=== PATIENT | female | born 1965 | race Caucasian/White ===

== ENCOUNTER 2024-10-19 12:37 | Outpatient (CLI) | payer OTHER, SELFPAY ==
--- NOTE | ~2024-10-19 | MMUS_ITS ---
EXAMINATION: MM diagnostic willis BI w shoaib, US breast LT limited HISTORY: Left nipple pain TECHNIQUE: 3-D tomosynthesis images of the breasts were performed and synthetic 2-D images were generated. CAD analysis was submitted and interpreted. High resolution limited left breast ultrasound was performed. COMPARISON: 07/29/2017 BREAST PARENCHYMAL COMPOSITION:Dense: The breasts are heterogeneously dense, which may obscure small masses. FINDINGS: MAMMOGRAPHIC FINDINGS: Parenchymal pattern of both breasts is unchanged. No suspicious mass lesion or distortion. No suspicious microcalcification. ULTRASOUND: There is a 3 mm cyst in the 2:00 left subareolar region. No other solid mass lesion or intraductal mass seen. No dilated ducts. IMPRESSION: No evidence for malignancy. 3 mm simple cyst in the left subareolar region, as above. BI-RADS Category 2: Benign finding(s). Reviewed, dictated and finalized at location . IMPRESSION: No evidence for malignancy. 3 mm simple cyst in the left subareolar region, as above. BI-RADS Category 2: Benign finding(s).
--- OUTSIDE RECORDS SUMMARY | 2024-10-19 12:43 | XMS_ITS | Clinical Summary ---
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 Active Vitamin D-Vitamin K (VITAMIN K2-VITAMIN D3 OR) Vitamin D3 5000 IU, K2 100 mcg Active Active Problems Problem Noted Date Diagnosed Date Carpal tunnel syndrome, right 07/29/2021 Arthritis of carpometacarpal (CMC) joint of left thumb 07/29/2021 Plantar fasciitis 06/07/2020 Postmenopausal 06/07/2020 Pain of left thumb 06/07/2020 Resolved Problems Problem Noted Date Diagnosed Date Resolved Date Chronic pain of left knee 06/07/2020 Chronic pain of right knee 06/07/2020 0 08/03/2022 BMI 25.0-25.9,adult 06/07/2020 08/04/19 23 Encounters Date Type Department Care Team Description 09/27/2024 9:00 AM CDT Office Visit [facility] Family & Internal Medicine [address] [phone] Tj Sarkar APNP Breast Pain (Pt c/o a burning pain in left breast x 2-3 weeks. She states it only hurts when she moves certain ways, reaches or coughs. She describes it as a tearing sensation deep behind/beneath the nipple. ) 09/27/2024 Telephone [facility] Family & Internal Medicine [address] [phone] Tj Sarkar, APNP Orders 09/27/2024 Travel 07/27/2024 1:34 PM CDT - 07/27/2024 11:59 PM CDT Hospital Encounter [facility] Occupational Therapy [address] [place] [address] Gerald Wolfe MD Smith, Kimberly M, OT Thumb Pain Discharge Disposition: Home or Self Care (Routine Discharge) 07/27/2024 Travel 07/20/2024 2:00 PM CDT Office Visit [facility] - [place] [address] [place] [address] Gerald Wolfe MD Postop Followup (Left cmc sx 05/24/24) 07/20/2024 Travel from Last 3 Months Family History Medical History Relation Comments Diabetes Father Arthritis Maternal Grandmother osteo Cancer Sister breast Relation Status Comments Brother Alive Father Alive Maternal Grandmother Mother Alive Sister Alive Social History Tobacco Use Types Packs/Day Years Used Date Smoking Tobacco: Never Smokeless Tobacco: Never Tobacco Cessation:Counseling Given: No Comments:non smoker Alcohol Use Standard Drinks/Week Comments Not Currently 0 (1 standard drink = 0.6 oz pur e alcohol) some--tasting PHQ-2 Answer Date Recorded Patient Health Questionnaire-2 Score 0 09/27/2024 Comments No Sex and Gender Information Value Date Recorded Sex Assigned at Female 05/24/2024 5:39 AM CDT Legal Sex Female 8:31 PM CDT Gender Identity Not on file Sexual Orientation Not on file Last Filed Vital Signs Vital Sign Reading Time Taken Comments Blood Pressure 130/82 09/27/2024 8:56 AM CDT Pulse 95 09/27/2024 8:56 AM CDT Temperature 36.7 C (98.1 F) 09/27/2024 8:56 AM CDT Respiratory Rate 16 09/27/2024 8:56 AM CDT Oxygen Saturation 100% 09/27/2024 8:56 AM CDT Inhaled Oxygen Concentration - - Weight 44.7 kg (98 lb 9.6 oz) 09/27/2024 8:56 AM CDT Height 157.5 cm (5' 2) 09/27/2024 8:56 AM CDT Body Mass Index 18.03 09/27/2024 8:56 AM CDT Plan of Treatment Health Maintenance Due Date Last Done Comments Cervical Cancer Screening Pa p Smear (Age 30 to 64) Every 3 Years 1967 Colorectal Cancer Screening Colonoscopy (10 Years) 1965 Hepatitis C 07/22/1985 DTaP, Tdap and Td Vaccines ( 1 - Tdap) 07/22/1986 Hepatitis B Vaccines (1 of 3 - 19+ 3-dose series) 07/22/1986 Cervical Cancer Screening Pa p with HPV Testing (Age 30 to 64) Every 5 Years 07/22/1997 Cervical Cancer Screening wi th HPV 07/22/1997 Pneumococcal Vaccine: 50+ Ye ars (1 of 1 - PCV) 07/22/2017 Zoster Vaccines (1 of 2) 07/22/2017 Annual Physical 08/04/2023 08/03/2022 COVID-19 Vaccine (1 - 2023-2 5 season) 2023 Mammogram Screening 11/24/2024 11/24/2022 Colorectal Cancer Screening FIT-DNA (3 Years) Discontinued 07/09/2020 PHQ-2 (Physician [place]) Completed 09/27/2024 Meningococcal B Vaccine Aged Out No l onger eligible based on patient's age to complete this topic Meningococcal Vaccine Aged Out No sofy anjana eligible based on patient's age to complete this topic RSV Immunizations Under 20 Months Aged Out No longer eligible based on patient's age to complete this topic Medical Devices Implanted Type Area Brusher Machine Device Identifier Shelf Expiration Date Model / Serial / Lot Graft Tissue Arthroflex [id number] Dermal Matrix - [id number] Implanted:Qty: 1 on 05/24/2024 by Gerald Wolfe MD at [facility] Tissue Left: Thumb [facility] 02/23/2026 [id number] / [id number] / Procedures Procedure Name Priority Date/Time Associated Diagnosis Comments MG SCREENING W MARIBELL VONNIE DIGI Routine 11/24/2022 2:30 PM CDT Encounter for screening mammogram for malignant neoplasm of breast COLOGUARD ([employer]) Routine 07/09/2020 9:30 AM CDT Colon cancer screening from Last 3 Months or Most Recently Relevant to Health Maintenance Results * MG SCREENING W MARIBELL VONNIE DIGI (11/24/2022 2:30 PM CDT) Anatomical Region Laterality Modality Breast Bilateral Mammography 12/01/2022 2:38 PM CDT Narrative 12/01/2022 2:40 PM CDT EXAMINATION: MG SCREENING W MARIBELL VONNIE DIGI INDICATIONS: Screening TECHNIQUE: Digital full field CC and MLO screening mammography bilaterally to include 3-D Tomosynthesis technique. This study was read with the assistance of a computer-aided detection system. HISTORY: First-degree family history of breast cancer in sister. No documented personal history of breast cancer or prior breast procedure. No reported current breast complaint. COMPARISON: 07/29/2017, 01/18/2014, and 08/13/2007. TISSUE DENSITY: The breast tissue is heterogeneously dense, which may obscure small masses. FINDINGS: Few scattered typically benign round calcifications. No suspicious microcalcification or mass. Stable fibroglandular asymmetries. No developing asymmetry or architectural distortion. No axillary adenopathy. IMPRESSION: No significant interval change. No mammographic evidence of malignancy. RECOMMENDATION: Routine ScreeningBilateral OVERALL IMAGING ASSESSMENT: ACR BI-RADS 2 - BENIGN FINDING(S). Ordered By: TJ SARKAR Interpreted By: Esteban Gonzalez, 12/01/2022 2:38 PM Tj Sarkar APNP MAMMO Final Resul t * COLOGUARD ([employer]) (07/09/2020 9:30 AM CDT) COLOGUARD RESULT Negative Not Applicable [employer] (CLIA #:[id number]) Comment: A negative result indicates a low likelihood that a colorectal cancer (CRC) or an advanced adenoma (adenomatous polyps with more advanced pre-malignant features) is present. The chance that a person with a negative Cologuard test has a colorectal cancer is less than 1 in 1500 (negative predictive value >99.9%) or has an advanced adenoma is less than 5.3% (negative predictive value 94.7%). These data are based on a prospective cross-sectional screening study of 10,000 individuals at average risk for colorectal cancer who were screened with both Cologuard and colonoscopy. (Briseyda Silva al, N Engl J Med 2014;370(14):2462-0096) The normal value (reference range) for this assay is negative. COLOGUARD RE-SCREENING RECOMMENDATION: Periodic routine colorectal cancer screening is an important part of preventive healthcare for asymptomatic persons at average risk for colorectal cancer. Following a negative Cologuard result, the [place] [employer] Society and U.S. Multi-Society Task Force screening guidelines recommend a Cologuard re-screening interval of 3 years. References: [place] [employer] Society (ACS). Colorectal cancer prevention and early detection. [place], [place]: [place] [employer] Society; [updated 2015Jun 22]. https://www.cancer.org/cancer/nmruo-ldfnyn-jxvhmf/ljqovfopc-ekeqrelmc-zloktra/ac s-rec ommendations.html. Accessed October 29, 2017; Zachary DK, Eyal CADEAN, Pete BONE, Colorectal Cancer Screening: Recommendations for Physicians and Patients from the U.S. Multi-Society Task Force on Colorectal Cancer Screening, Am J Gastroenterology 2017; 112:8241-0122. TEST TYPE: Composite algorithmic analysis of stool DNA-biomarkers with hemoglobin immunoassay. Quantitative values of individual biomarkers are not reportable and are not associated with individual biomarker result reference ranges. PRECAUTIONS AND LIMITATIONS: Cologuard is intended for colorectal cancer screening of adults of either sex, 45 years or older, who are at average-risk for colorectal cancer (CRC). Cologuard has been approved for use by the U.S. FDA. Cologuard may produce a false negative or false positive result. A negative Cologuard test result does not guarantee the absence of CRC or advanced adenoma (pre-cancer). Patients with a negative Cologuard test result should be advised to continue participating in a colorectal cancer screening program. The screening interval for Cologuard is currently recommended at an interval of every 3 years by the [place] [employer] Society and U.S. Multi-Society Task Force. A false positive result occurs when Cologuard produces a positive result, even though a colonoscopy may not find colorectal cancer or precancerous polyps. The performance of Cologuard has been established in a cross sectional study (i.e., single point in time) of average-risk adults aged 50-84. Cologuard performance in patients ages 45 to 49 years was estimated by sub-group analysis of near-age groups. Cologuard performance data in a 10,000 patient pivotal study using colonoscopy as the reference method can be accessed at the following location: www.exactMetaboli.Nettle/results. Additional description of the Cologuard test process, warnings and precautions can be found at www.cologuardtest.com. Rx only. Stool specimen (specimen) STOOL SPECIMEN / Unknown 07/09/2020 9:30 AM CDT 07/10/2020 3:50 PM CDT us Tj POWELL BODY FLUIDS AND STOOLS ALISON FUENTES Final Result Performing Organization Address City/State/[facility] Co de Phone Number [employer] ([address]) [address] [place] [address], [employer] (CLIA #:[id number]) [address] 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
== END 2024-10-19 12:38 | disposition home or self-care (01) ==
LOC: ANHFOHIMG 12:41
PROVIDERS: PCP Registered Nurse; Visit Provider Registered Nurse
DX: N64.4 Mastodynia (principal); N60.02 Solitary cyst of left breast
CPT/HCPCS: 76642; 77062; 77066; G0279